=== PATIENT | male | born 1975 | race Caucasian/White ===

== ENCOUNTER → 2017-08-16 | Outpatient (CLI) | payer OTHER ==
[~2017-08-16] MED LIST: ALTACE10 MG PO; LIPITOR 20 MG T20 M1 PO; LOVAZA1000 MG PO; METFORMIN HCL500 MG PO; TRULICITY1.5 MG/0.5 SUBQ
== END | disposition home or self-care (01) ==
LOC: LITH 07:05
DX: N20.0 Calculus of kidney (principal); Z79.899 Other long term (current) drug therapy; Z98.890 Other specified postprocedural states